=== PATIENT | female | born 1970 | race Caucasian/White ===

== ENCOUNTER 2016-08-16 20:26 | Emergency (ER) | payer OTHER ==
[~2016-08-16] VITALS: Ht 160 cm; Wt 68.2 kg
[~2016-08-16 20:26] MED LIST: INSU100C6; INSU100I SUBQ; OMEP20TA86 PO
[2016-08-16 20:31] VITALS: BP 156/92; PULSE 67; RESP 16; O2SAT 100
--- NOTE | 2016-08-16 21:43 | ED.REPORT ---
HPI-Headache Date of Service Aug 16, 2016 ED Provider: Prashant Max MD A 45 year old female with a history of chronic migraines and insulin dependent diabetes presents to the ED complaining of a migraine that began 5 hours prior to arrival. Associated symptoms include nausea, blurred vision in the right eye and neck pain. She states that this is more severe than her previous migraines. Patient has also been experiencing a productive cough with yellow sputum, throat discomfort, sinus pressure, bilateral ear ache and rhinorrhea for the past 4 days. She denies any auras, fever numbness, tingling, dysphasia, or slurred speech. Nursing Notes Stated Complaint: MIGRAINE, NAUSEA Chief Complaint: Neuro Symptoms/ Deficits Nursing Notes Reviewed: Yes Allergies: Coded Allergies: Cephalosporins (Verified Allergy, Unknown, c/ diff, 08/16/16) Metronidazole HCl (Verified Allergy, Unknown, psychosis, 08/16/16) droperidol (Verified Allergy, Unknown, extra pyramidal sx., 08/16/16) prochlorperazine edisylate (Verified Allergy, Unknown, extra pryamidal sx. , 08/16/16) promethazine HCl (Verified Allergy, Unknown, extra pryamidal sx., 08/16/16) erythromycin base (Verified Adverse Reaction, Mild, UPSET STOMACH, 08/16/16 ) Uncoded Allergies: NORA (Allergy, Unknown, skin rash, 01/25/14) PARABENS (Allergy, Unknown, skin rash, 01/25/14) Scheduled Amoxicillin/Clav K 875-125 mg (Augmentin 875-125 mg) 1 Each Tablet 1 TABLET PO BID INSULIN GLARGINE-Expunged Drug, Do Not Renew! (Lantus-Expunged Drug, Do Not Renew!) 100 Unit/1 Ml Cartridge 17 HS Insulin ASPART-Expunged Drug, Do Not Renew! (Novolog-Expunged Drug, Do Not Renew !) 3 Ml Syringe 7-8 SUBQ TIDAC COVERAGE Omeprazole (Omeprazole) 20 Mg Tablet.dr 20 MG PO DAILY Scheduled PRN Ondansetron ODT (Zofran ODT) 4 Mg Tablet 4 MG PO Q4H PRN PRN For Nausea General Time Seen by MD: 21:42 Chief Complaint Migraine headache Hx Obtained From: Patient Arrived By: Walk-in Sudden in Onset?: Yes Onset Occurred: 5 - 8 hours ago (5 hours prior to arrival ) Symptom Duration: Since onset Location: : Generalized Quality: Aching Severity: Current: Moderate Severity: Maximum: Moderate Associated with: Reports: Nasal congestion, Photophobia, Visual disturbance, Denies: Aura motor, Aura sensory, Aura visual, Difficulty speaking, Fever Pertinent Negative: Pt denies other symptoms Recent Healthcare: No recent doctor visit, No recent hospitalization Risk-Headache )( SAH Risk Stratification RF Statements: Risk factors reviewed )( IC Mass Risk Stratification RF Statements: Risk factors reviewed Past Medical History Past Medical History Diabetic, insulin dependent Chronic migraines Past Surgical History None reported. Smoking History Former Smoker Social History Alcohol Use: 1-3 per week Drug Use: Denies drug use Other Social History: Good social support, Local resident Occupation lives with boyfriend Ambulatory Status Independent Review of Systems Constitutional: Denies: Chills, Fever Eyes: Reports: Blurred right Ears / Nose / Throat: Reports: Earache bilateral, Nasal congestion, Sinus problem, Throat pain GI: Reports: Nausea, Denies: Abdominal pain, Vomiting Musculoskeletal: Reports: Neck pain Neurologic: Reports: Headache, Denies: Change LOC, Numbness, Slurred speech, Unable to speak Complete sys rev & neg: except as marked. Physical Exam Initial Vital Signs Vital Signs (First) Date Time Temp Pulse Resp B/P Pulse Ox O2 Delivery O2 Flow Rate FiO2 08/16/16 20:31 36.4 67 16 156/92 100 Room Air Initial VS: Reviewed Extremities: Vascular intact, Neuro intact, No swelling, No tenderness Skin: Warm, Dry, No cyanosis Psychiatric: Mood/affect normal, Behavior normal, Normal thought content General/Constitutional: Awake, Alert, No acute distress Head / Eyes: Atraumatic, Normocephalic, PERRL Neck: Atraumatic, Supple Neurologic: Oriented X3, Speech NL, No motor deficits, No sensory deficits, CN II - XII intact Sinus: Positive: Tender maxillary R Respiratory / Chest: Atraumatic, Breath sounds NL, Breath sounds = bilat Cardiovascular: Heart rate NL, Regular rhythm, Heart sounds NL Abdomen: Atraumatic, Soft Re-Eval/Medical Decision Med Decision/Clinical Course 45 year female history of migraines presenting complaining of typical migraine. It normally resolves with Toradol and Zofran she is requesting this. She has no neurological deficits or signs and symptoms of meningitis. She does report some right maxillary sinus tenderness 5 days. Exam was benign as above. Patient's pain improved significantly with Toradol and Zofran. Discharged home with prescription for Zofran. Return precautions given. She is also given a prescription of Augmentin for possible developing sinus infection she may wait several days indicates it is viral and symptoms subside without need for antibiotics.. Return precautions given. Re-Evaluation/Progress : Time of Eval: 22:53 )( Patient Status: Condition improved Re-Evaluation/Progress Note: Patient is rechecked. Her symptoms have improved. She is informed of her lab results and diagnosis. All of the patient's questions are addressed. She understands and agrees with the treatment plan. Counseled Regarding: Diagnosis, Lab results, Need for follow-up, When/why to return to ED Discharge & Departure Impression: Primary Impression: Migraine Migraine type: unspecified Status migrainosus presence: without status migrainosus Intractability: not intractable Qualified Code: G43.909 - Migraine, unspecified, not intractable, without status migrainosus Additional Impression: Sinusitis Disposition: Home Discharge Condition All VS Reviewed: Yes Condition: Stable Patient Instructions: Migraine Headache (ED) Additional Instructions: Thank you for trusting us with your care this evening. Your emergency department evaluation is reassuring at this time. Schedule a follow up appointment with your primary care physician in the next 2 -3 days for a recheck. Please take Augmentin as prescribed and take 1 Zofran every 8 hours as needed for nausea. Please return to the emergency department for any new or worsening conditions. Referrals: Ramses Michel MD (PCP) [facility] Attestation Portions of this note were transcribed by Ginny Malik. I, Dr. Max personally performed the history, physical exam and medical decision-making; I reviewed and confirmed the accuracy of the information in the transcribed note. Signed by: Jack Ruffin, 08/16/16 1926. copies to: Ramses Michel MD, Ben M MD Aug 16, 2016 21:43 GINNY MALIK Aug 16, 2016 22:01
[2016-08-16] MEDS ORDERED: Ondansetron 2 mg/mL 2 mL Inj IVPUSH ONE (22:00)
[2016-08-16] MEDS ORDERED: 0.9% Sodium Chloride 1,000 ML IV ONE (22:40)
[2016-08-16] MEDS ORDERED: ONDA4TAB9 PO (23:02)
[2016-08-16] MEDS ORDERED: AMOX-366 PO (23:02)
== END 2016-08-16 23:06 | disposition home or self-care (01) ==
LOC: SED 20:26
DX: G43.909 Migraine, unspecified, not intractable, without status migrainosus (principal); J32.9 Chronic sinusitis, unspecified; E11.49 Type 2 diabetes mellitus with other diabetic neurological complication; Z87.891 Personal history of nicotine dependence; Z88.1 Allergy status to other antibiotic agents; Z88.8 Allergy status to other drugs, medicaments and biological substances; Z79.4 Long term (current) use of insulin
CPT/HCPCS: 96374; 96375; 99284; J2405

== ENCOUNTER 2016-10-02 08:29 | Emergency (ER) | payer OTHER ==
[~2016-10-02] VITALS: Ht 160 cm; Wt 72.7 kg
[~2016-10-02 08:29] MED LIST changes: +AMOX-366 PO; +ONDA4TAB9 PO
[2016-10-02 08:32] VITALS: BP 132/74; PULSE 85; RESP 18; O2SAT 100
[2016-10-02] MEDS ORDERED: 0.9% Sodium Chloride 1,000 ML IV ONE ×2 (08:48→10:20)
[2016-10-02] MEDS ORDERED: Ondansetron 2 mg/mL 2 mL Inj IVPUSH ONE (08:50)
--- NOTE | 2016-10-02 08:50 | ED.REPORT ---
HPI-Headache Date of Service Oct 02, 2016 ED Provider: Qian Akers MD 45 year old female with a history of migraines and type 1 diabetes presents to the ER accompanied by her complaining of headache onset this morning upon awakening. Associated symptoms include blurred vision, nausea and vomiting with symptom onset. Symptoms have been treated with home Zofran with no relief. She also reports that retching has exacerbated chronic pain secondary to slipped discs, and that her nausea/vomiting has prevented her from taking her morning medications. Patient was seen here in the ER last month for similar. Nursing Notes Stated Complaint: HYPOGLYCEMIA/MIGRAINE Chief Complaint: General Complaint Nursing Notes Reviewed: Yes Allergies: Coded Allergies: Cephalosporins (Verified Allergy, Unknown, c/ diff, 08/16/16) Metronidazole HCl (Verified Allergy, Unknown, psychosis, 08/16/16) droperidol (Verified Allergy, Unknown, extra pyramidal sx., 08/16/16) prochlorperazine edisylate (Verified Allergy, Unknown, extra pryamidal sx. , 08/16/16) promethazine HCl (Verified Allergy, Unknown, extra pryamidal sx., 08/16/16) erythromycin base (Verified Adverse Reaction, Mild, UPSET STOMACH, 08/16/16 ) Uncoded Allergies: NORA (Allergy, Unknown, skin rash, 01/25/14) PARABENS (Allergy, Unknown, skin rash, 01/25/14) Scheduled Amoxicillin/Clav K 875-125 mg (Augmentin 875-125 mg) 1 Each Tablet 1 TABLET PO BID INSULIN GLARGINE-Expunged Drug, Do Not Renew! (Lantus-Expunged Drug, Do Not Renew!) 100 Unit/1 Ml Cartridge 17 HS Insulin ASPART-Expunged Drug, Do Not Renew! (Novolog-Expunged Drug, Do Not Renew !) 3 Ml Syringe 7-8 SUBQ TIDAC COVERAGE Omeprazole (Omeprazole) 20 Mg Tablet.dr 20 MG PO DAILY Scheduled PRN Ondansetron ODT (Zofran ODT) 4 Mg Tablet 4 MG PO Q4H PRN PRN For Nausea General Time Seen by MD: 08:47 Chief Complaint Headache Hx Obtained From: Patient Arrived By: Walk-in Sudden in Onset?: No Onset Occurred: 1 - 4 hours ago Symptom Duration: Since onset Location: : Generalized Quality: Painful Severity: Current: Moderate Severity: Maximum: Moderate Associated with: Reports: Nausea, Photophobia, Visual disturbance, Vomiting Related History: Reports: Headache, migraine hx Similar Sx Previous: Yes Past Medical History Past Medical History Diabetic, insulin dependent Chronic migraines Past Surgical History None reported. Smoking History Former Smoker Social History Alcohol Use: 1-3 per week Drug Use: Denies drug use Other Social History: Good social support, Local resident Occupation lives with boyfriend Ambulatory Status Independent Review of Systems Eyes: Reports: Photophobia, Denies: Visual loss bilateral GI: Reports: Nausea, Vomiting Musculoskeletal: Reports: Back pain Neurologic: Reports: Headache, Vision change (Right eye, prior to onset of headache), Denies: Focal weakness, Numbness, Slurred speech, Syncope, Unable to speak, Weakness Complete sys rev & neg: except as marked. Physical Exam Initial Vital Signs Vital Signs (First) Date Time Temp Pulse Resp B/P Pulse Ox O2 Delivery O2 Flow Rate FiO2 10/02/16 08:32 36.2 85 18 132/74 100 Room Air Initial VS: Reviewed Respiratory: Breath sounds normal, Clear to auscultation, No respiratory distress Cardiovascular: Regular rate & rhythm, Heart sounds normal, Intact distal pulses Extremities: Vascular intact, Neuro intact, No swelling, No tenderness Skin: Warm, Dry, No cyanosis Psychiatric: Mood/affect normal, Behavior normal, Normal thought content General/Constitutional: Awake, Alert, Well developed, Well nourished Head / Eyes: Atraumatic, Normocephalic Neck: Supple, No meningismus, Full range of motion, No swelling, Non-tender, No masses Neurologic: Oriented X3, Speech NL, No motor deficits, No sensory deficits, CN II - XII intact, Cerebellar NL Abdomen: Soft, No guarding, No rebound, No distention Tenderness/Guarding/Rebound: Positive: Tender diffuse Interpretation & Diagnostics Lab Results Interpretation Test 10/02/16 08:45 Hold Purple Top Tube Received (Received) Hold Blue Top Tube Received (Received) Hold Waldron Top Tube Received (Received) Re-Eval/Medical Decision Med Decision/Clinical Course had nice response to IM imitrex. Has used IM toradol at home. Will give rx for both Re-Evaluation/Progress : Time of Eval: 09:13 Re-Evaluation/Progress Note: Discussed physical examination findings and plan to discharge. Patient is amenable to the plan. Return precautions given. All other questions addressed. Counseled Regarding: Diagnosis, Lab results, Need for follow-up, When/why to return to ED Discharge & Departure Impression: Primary Impression: Migraine Disposition: Home Discharge Condition All VS Reviewed: Yes Condition: Stable Patient Instructions: Migraine Headache (DC) Additional Instructions: I am sorry that your migraines cause you so much discomfort. We were able to control your headache here in the ER with IV fluids and medications. I've given you a prescription for IM Imitrex. Sometimes this does require a preauthorization. I will also refill the IM Toradol at 60mg as directed for severe headache. Return to the ER with uncontrollable pain, nausea, vomiting, or any other new or concerning symptoms. Referrals: Ramses Michel MD (PCP) [facility] Attestation Portions of this note were transcribed by Romulo Chamberlain. I, Dr. Akers, personally performed the history, physical exam and medical decision-making; I reviewed and confirmed the accuracy of the information in the transcribed note. Signed by: Jack Oneil, 10/02/2016 at 09:15 copies to: Ramses Michel MD, Shawna L MD Oct 02, 2016 08:50 ROMULO CHAMBERLAIN Oct 02, 2016 08:58 Qian Akers MD Oct 02, 2016 08:50 ROMULO CHAMBERLAIN Oct 02, 2016 08:58
[2016-10-02 11:42] VITALS: BP 107/43; PULSE 70; RESP 14; O2SAT 98
[2016-10-02 12:00] VITALS: BP 107/43; PULSE 70; RESP 14; O2SAT 98
== END 2016-10-02 12:00 | disposition home or self-care (01) ==
LOC: SED 08:29
DX: G43.909 Migraine, unspecified, not intractable, without status migrainosus (principal); E11.9 Type 2 diabetes mellitus without complications; Z87.891 Personal history of nicotine dependence; Z79.4 Long term (current) use of insulin; Z88.1 Allergy status to other antibiotic agents; Z88.8 Allergy status to other drugs, medicaments and biological substances
CPT/HCPCS: 82948; 96361; 96372; 96374; 96375; 99284; J1200; J1885; J2405; J7030